=== PATIENT | female | born 1955 | race Caucasian/White ===

== ENCOUNTER → 2024-10-29 | Outpatient (CLI) | payer MEDICARE, BC ==
--- NOTE | 2024-10-30 11:50 | XR ---
EXAMINATION TYPE: XR chest 2V DATE OF EXAM: 10/29/2024 10:31 AM COMPARISON: None. CLINICAL INDICATION: Female, 69 years old with history of ENCOUNTER FOR OTHER PREPROCEDURAL EXAMINATI ON: Shortness of breath TECHNIQUE: XR chest 2V views of the chest are obtained. FINDINGS: Scattered senescent parenchymal changes noted. Hyperinflation compatible with COPD. No evidence for infiltrate. No evidence for atelectasis. Heart size is stable. Mediastinal structures are stable and grossly unremarkable. No evidence for hilar prominence. Degenerative changes dorsal spine. IMPRESSION: 1. No evidence for acute pulmonary disease. [facility], , 10/29/2024 1:29 PM
== END | disposition home or self-care (01) ==
LOC: RADXRMAIN 10:15
PROVIDERS: ATTEND Nurse Practitioner Family
DX: Z01.818 Encounter for other preprocedural examination (principal); M48.02 Spinal stenosis, cervical region; Z22.322 Carrier or suspected carrier of Methicillin resistant Staphylococcus aureus; R06.02 Shortness of breath
CPT/HCPCS: 71046